=== PATIENT | female | born 1975 | race Caucasian/White ===

== ENCOUNTER 2018-04-10 12:21 | Emergency (ER) | payer OTHER ==
[~2018-04-10] VITALS: Ht 172.7 cm; Wt 96.2 kg
[2018-04-10] MEDS ORDERED: IBESARTAN PO (13:41)
[2018-04-10] MEDS ORDERED: ZIAC 10/6.25 MG1 TAB PO (13:41)
[2018-04-10] MEDS ORDERED: DIAZEPAM10 MG PO (15:04)
== END 2018-04-10 15:57 | disposition home or self-care (01) ==
LOC: ER 12:21
DX: M54.32 Sciatica, left side (principal)